=== PATIENT | female | born 1965 | race Caucasian/White ===

== ENCOUNTER 2021-10-08 14:06 | Outpatient (CLI) | payer BC, SELFPAY ==
--- NOTE | ~2021-10-08 | MR_ITS ---
EXAMINATION: MR brain/brain stem wo con DATE: 10/08/2021 17:55 CDT INDICATION: Headache TECHNIQUE: Magnetic resonance imaging (MRI) of the brain and brainstem was performed without intraven ous contrast. Sequences included sagittal and axial T1-weighted SE, axial diffusion-weighted FS SE, a xial T2*-weighted GRE, axial T2-weighted FLAIR Propeller, and axial T2-weighted Propeller. Apparent d iffusion coefficient (ADC) maps were created. COMPARISON: No prior studies for comparison. FINDINGS: The brain volume and ventricular system are within normal limits. The brain parenchymal si gnal intensity pattern and wong/white matter is normal and there is no evidence of hemorrhage, space occupying masses or infarctions. The flow signal voids of the major arterial structures about the [place] and within the pema r dural venous sinuses appear grossly unremarkable and patent. The seventh and eighth cranial nerve complexes are normal. The mid sagittal image demonstrates a normal craniovertebral junction and suad us callosum. The paranasal sinuses are grossly unremarkable. IMPRESSION: 1: No acute intracranial abnormality. Reviewed, dictated and finalized at location A.
== END 2021-10-08 14:07 ==
PROVIDERS: PCP Family Medicine Adolescent Medicine; Visit Provider Physician Assistant
DX: R51.9 Headache, unspecified (principal)
CPT/HCPCS: 70551

== ENCOUNTER → 2025-01-06 11:51 | Outpatient (CLI) | payer OTHER, SELFPAY ==
--- NOTE | ~2025-01-06 | XR_ITS ---
EXAMINATION: XR hip BI 2V w AP pelvis, 01/06/2025 11:58 CDT HISTORY: bilateral hip pain few months, no trauma or injury COMPARISON: No comparisons available. Findings: No acute fracture or malalignment. No significant degenerative changes. Soft tissues unremarkable. Impression: No acute fracture or malalignment. Reviewed, dictated and finalized at location P. Impression: No acute fracture or malalignment.
== END ==
PROVIDERS: PCP Nurse Practitioner Family; Visit Provider Nurse Practitioner Family
DX: M25.551 Pain in right hip (principal); M25.552 Pain in left hip
CPT/HCPCS: 73521